=== PATIENT | female | born 1925 | race Caucasian/White ===

== ENCOUNTER 2017-03-30 09:31 | Outpatient (CLI) | payer MEDICARE | END 2017-03-30 09:32 | disposition critical access hospital (66) | LOC: EMS 09:31 | PROVIDERS: ATTEND Surgery | DX: R07.9 Chest pain, unspecified (principal) | CPT/HCPCS: A0425; A0427 ==

== ENCOUNTER 2017-03-30 10:08 | Emergency (ER) | payer MEDICARE ==
--- NOTE | 2017-03-30 10:15 | ED Physician Documentation ---
PD HPI CHEST PAIN - Stated complaint Stated Complaint: CP - Chief complaint Chief Complaint: Cardiac - History obtained from History obtained from: Patient - History of Present Illness Timing - onset: How many hours ago (about 3 am, awoke with onset of left chest pain, worse with breathing. It was hurting more initially and has eased through past few hours, but has not gone away. Pain localized to left anterior chest.), Today Timing - onset during: Sleep Timing - duration: Hours (about 6 hours from onset) Timing - details: Abrupt onset, Still present (lessening) Quality: Aching, Pain Location: Left chest Radiation: No: Jaw, Neck, Back, Abdominal, Left upper extremity Improved by: Rest Worsened by: Inspiration. No: Exertion, Movement, Palpation, Position Associated symptoms: Shortness of air. No: Diaphoresis, Nausea, Vomiting, Feeling faint / dizzy, General Weakness, Palpitations, Cough Similar symptoms before: Has not had sx before Recently seen: Not recently seen Review of Systems Constitutional: denies: Fever, Chills Eyes: denies: Loss of vision, Decreased vision Nose: denies: Rhinorrhea / runny nose, Congestion Throat: denies: Sore throat Cardiac: denies: Palpitations, Pedal edema, Calf pain Respiratory: denies: Dyspnea, Cough PD PAST MEDICAL HISTORY - Present Medications Home Medications: Ambulatory Orders Medication Instructions Recorded Confirmed Allopurinol [Zyloprim] 1 tab PO DAILY 03/30/17 03/30/17 Aspirin [Adult Low Dose Aspirin EC] 1 tab PO DAILY 03/30/17 03/30/17 Hydrochlorothiazide 1 cap PO DAILY 03/30/17 03/30/17 Levothyroxine [Synthroid] 1 tab PO DAILY 03/30/17 03/30/17 Losartan [Cozaar] 1 tab PO DAILY 03/30/17 03/30/17 - Allergies Allergies/Adverse Reactions: Allergies Allergy/AdvReac Type Severity Reaction Status Date / Time albuterol Allergy Anaphylaxis Verified 03/30/17 10:15 codeine Allergy Unknown Verified 03/30/17 10:15 Sulfa (Sulfonamide Allergy Unknown Verified 03/30/17 10:15 Antibiotics) Results - Vitals Vitals: Vital Signs - 24 hr 03/30/17 03/30/17 03/30/17 10:10 11:07 11:13 Temperature 36.9 C Heart Rate 97 86 Respiratory 16 18 Rate Blood Pressure 158/84 H 121/59 L O2 Saturation 98 97 03/30/17 12:46 Temperature Heart Rate 86 Respiratory 20 Rate Blood Pressure 126/56 L O2 Saturation 97 Oxygen O2 Source Room air - EKG (time done) 10:16 Rate: Rate (enter#) (97) Rhythm: NSR [place]: Normal Intervals: Normal ND QRS: Normal Ischemia: Normal ST segments. No: ST elevation c/w ischemia, ST depression, Hyperacute T waves - Labs Labs: Laboratory Tests 03/30/17 03/30/17 03/30/17 11:00 11:00 11:00 WBC 9.6 RBC 3.94 L Hgb 11.8 L Hct 35.5 L MCV 90.3 MCH 29.9 MCHC 33.2 RDW 16.0 H Plt Count 259 MPV 7.6 L Neut # 6.6 Lymph # 2.1 [place] # 0.8 Eos # 0.1 Baso # 0.0 Absolute Nucleated RBC 0.00 Nucleated RBCs 0.0 D-Dimer 602.8 H Sodium 137 Potassium 3.6 Chloride 98 L Carbon Dioxide 30 Anion Gap 9.0 BUN 15 Creatinine 0.9 Estimated GFR (MDRD) 59 L Glucose 137 H Calcium 9.1 Total Bilirubin 0.5 AST 57 H ALT 43 Alkaline Phosphatase 52 Troponin I B-Natriuretic Peptide Total Protein 6.4 L Albumin 3.1 L Globulin 3.3 Albumin/Globulin Ratio 0.9 L Lipase 25 03/30/17 03/30/17 03/30/17 11:00 11:00 12:45 WBC RBC Hgb Hct MCV MCH MCHC RDW Plt Count MPV Neut # Lymph # [place] # Eos # Baso # Absolute Nucleated RBC Nucleated RBCs D-Dimer Sodium Potassium Chloride Carbon Dioxide Anion Gap BUN Creatinine Estimated GFR (MDRD) Glucose Calcium Total Bilirubin AST ALT Alkaline Phosphatase Troponin I 0.14 0.14 B-Natriuretic Peptide 139 H Total Protein Albumin Globulin Albumin/Globulin Ratio Lipase - Rads (name of study) chest Radiology: Prelim report reviewed, EMP read contemporaneously (no acute findings. ) chest angio Radiology: Prelim report reviewed (no pulmonary emboli. Multiple small chest lymph nodes felt to be reactive. ) PD MEDICAL DECISION MAKING - ED course Complexity details: reviewed results, considered differential, d/w patient Departure - Departure Disposition: 01 Home, Self Care Clinical Impression: Chest pain of uncertain etiology Clinical Impression: (Ruled Out): Myocardial infarction, Pulmonary edema Condition: Stable Record reviewed to determine appropriate education?: Yes Instructions: ED Chest Pain Pleurisy Comments: Tylenol or Ibuprofen as needed for pains. Recheck if not improved over the next few days. Presume musculoskeletal pains at this point, as tests have excluded other significant causes. Return if other symptoms develop. Discharge Date/Time: 03/30/17 13:37
[2017-03-30] MEDS ORDERED: ACETAMINOPHEN 325 MG TABLET PO STA (10:47)
[2017-03-30] MEDS ORDERED: ACETAMINOPHEN 325 MG TABLET PO ONE (10:51)
[2017-03-30 11:15] LABS: BASOPHILS % (AUTO) 0.5 %; EOSINOPHILS # (AUTO) 0.1 10^3/uL (0.0-0.7); EOSINOPHILS % (AUTO) 1.1 %; HCT - HEMATOCRIT 35.5 % (37.0-47.0); HGB - HEMOGLOBIN 11.8 g/dL (12.0-16.0); LYMPHOCYTES # (AUTO) 2.1 10^3/uL (1.5-3.5); LYMPHOCYTES % (AUTO) 21.7 %; MEAN CORPUSCULAR HEMOGLOBIN 29.9 pg (27.0-31.0); MEAN CORPUSCULAR HGB CONC 33.2 g/dL (32.0-36.0); MEAN CORPUSCULAR VOLUME 90.3 fL (81.0-99.0); MEAN PLATELET VOLUME 7.6 fL (7.9-10.8); MONOCYTES # (AUTO) 0.8 10^3/uL (0.0-1.0); NEUTROPHILS # (AUTO) 6.6 10^3/uL (1.5-6.6); NEUTROPHILS % (AUTO) 68.7 %; RED BLOOD COUNT 3.94 10^6/uL (4.20-5.40); UNCORRECTED WHITE BLOOD COUNT 9.6 x10^3/uL; WHITE BLOOD COUNT 9.6 x10^3/uL (4.8-10.8)
[2017-03-30 11:21] LABS: ALBUMIN/GLOBULIN RATIO 0.9 (1.0-2.2); BILIRUBIN,TOTAL 0.5 mg/dL (0.2-1.0); CALCIUM 9.1 mg/dL (8.5-10.3); CREATININE 0.9 mg/dL (0.4-1.0); POTASSIUM 3.6 mmol/L (3.5-5.0); TOTAL PROTEIN 6.4 g/dL (6.7-8.2)
--- NOTE | 2017-03-30 11:31 | XRAY Preliminary Report ---
Exam: XR Chest 2 View PA/LAT IMPRESSION: Normal 2-view chest radiography. [facility] SITE ID: [id number]
--- NOTE | 2017-03-30 11:33 | XRAY Report ---
EXAM: CHEST RADIOGRAPHY EXAM DATE: 03/30/2017 11:11 AM. CLINICAL HISTORY: Left chest pain this morning. COMPARISON: Chest radiograph dated 11/08/2011. TECHNIQUE: 2 views. FINDINGS: Lungs/Pleura: No focal opacities evident. No pleural effusion. No pneumothorax. Normal volumes. Mediastinum: Heart and mediastinal contours are unremarkable. Other: None. IMPRESSION: Normal 2-view chest radiography. [facility] Referring Provider Line: [phone] SITE ID: [id number]
[2017-03-30] MEDS ORDERED: SODIUM CHLORIDE 0.9% 500 ML IV ONE (11:56)
[2017-03-30] MEDS ORDERED: IOPAMIDOL-300 100 ML VIAL IVP ONE (12:34)
[2017-03-30 12:48] VITALS: BP 126/56
--- NOTE | 2017-03-30 13:02 | CT Preliminary Report ---
Exam: CT Chest Angio (PE) IMPRESSION: 1. No pulmonary emboli. 2. No focal consolidation or pleural effusion. 3. Multiple subcentimeter mediastinal lymph nodes are thought to be reactive in nature. [facility] SITE ID: [id number]
--- NOTE | 2017-03-30 13:04 | CT Report ---
EXAM: CT ANGIOGRAM CHEST EXAM DATE: 03/30/2017 12:34 PM. CLINICAL HISTORY: Left pleuritic chest pain this morning. COMPARISON: None. TECHNIQUE: Routine helical imaging was performed through the chest in the pulmonary arterial phase. I V Contrast: 100 mL Isovue 300. Reconstructions: Coronal 3-D MIP reconstructions.Sagittal and coronal. In accordance with CT protocol optimization, one or more of the following dose reduction techniques w ere utilized for this exam: automated exposure control, adjustment of mA and/or KV based on patient s ize, or use of iterative reconstructive technique. FINDINGS: Pulmonary Arteries: Diagnostic quality: Adequate through the segmental arteries. No evidence for acute or chronic pulmona ry emboli. RV/LV is within normal limits. There is no interventricular septal bowing. There is no reflux of cont rast material in the IVC. Lungs/Pleura: No consolidation, nodules, or edema. No effusions or pneumothorax. Mediastinum: Multiple subcentimeter mediastinal lymph nodes are thought to be reactive in nature. The heart is otherwise normal in size. No pericardial effusion. Thoracic Aorta: Unremarkable. Upper Abdomen: Patient is status post cholecystectomy. Small hiatal hernia. Other: None. IMPRESSION: 1. No pulmonary emboli. 2. No focal consolidation or pleural effusion. 3. Multiple subcentimeter mediastinal lymph nodes are thought to be reactive in nature. [facility] Referring Provider Line: [phone] SITE ID: [id number]
== END 2017-03-30 13:37 | disposition home or self-care (01) ==
LOC: EDUNIT# → ED 10:08
DX: R07.9 Chest pain, unspecified (principal); Z79.82 Long term (current) use of aspirin
CPT/HCPCS: 36415; 71020; 71275; 80053; 83690; 83880; 84484; 85025; 85379; 93005; 99283; 99284; A9270; Q9967

== ENCOUNTER 2017-06-17 13:38 | Outpatient (CLI) | payer MEDICARE | END 2017-06-17 13:39 | disposition home or self-care (01) | LOC: DI 13:38 | PROVIDERS: ATTEND Internal Medicine | DX: M15.9 Polyosteoarthritis, unspecified (principal); I51.7 Cardiomegaly; I34.0 Nonrheumatic mitral (valve) insufficiency | CPT/HCPCS: 93306 ==

== ENCOUNTER 2017-09-17 15:25 | Outpatient (CLI) | payer MEDICARE | END 2017-09-17 15:26 | disposition EMS.NT | LOC: EMS 15:25 | PROVIDERS: ATTEND Surgery | DX: R44.8 Other symptoms and signs involving general sensations and perceptions (principal) ==